=== PATIENT | male | born 1965 | race Caucasian/White ===

== ENCOUNTER → 2017-02-28 | Outpatient (CLI) | payer BC ==
--- NOTE | 2017-02-28 12:11 | RAD ---
Thoracic spine plain films Indication: Cervical and thoracic pain for 2 months, felt a pop while working, left arm numbness Comparison: None Findings: Thoracic spine is in normal anatomic alignment. No compression deformities. Mild multilevel degenerative disc disease. Visualized lungs are clear. Heart is normal in size. Impression: Mild degenerative disc disease in the spine. No compression deformities. If concern for thoracic spine fracture is high, please consider CT of the thoracic spine without IV contrast. MTDD
--- NOTE | 2017-02-28 12:11 | RAD ---
Cervical spine plain films Indication: Cervical and thoracic pain for 2 months, felt a pop while working, left arm numbness. Technique: 3 views of the cervical spine Comparison: None Findings: There is loss of normal cervical lordosis. This could be due to muscle spasm or technique. No vertebral body height loss. Intervertebral disc space narrowing noted at C4-C5 with anterior osteophytes compatible with degenerative disc disease. Facet joints are well aligned. No atlantoaxial joint widening. Prevertebral soft tissues are within normal limits. Visualized lung apices are clear. Impression: Cervical spine straightening may be secondary to muscle spasm or technique. Degenerative disc disease at C4-C5. MTDD
== END | disposition home or self-care (01) ==
LOC: DXRADRC 09:08
PROVIDERS: ATTEND Nurse Practitioner Family
DX: M50.321 Other cervical disc degeneration at C4-C5 level (principal); M51.34 Other intervertebral disc degeneration, thoracic region; M40.292 Other kyphosis, cervical region
CPT/HCPCS: 72040; 72072

== ENCOUNTER → 2017-03-07 | Outpatient (CLI) | payer BC ==
--- NOTE | 2017-03-07 16:51 | RAD ---
AP and lateral lumbar spine radiographs 03/07/2017 Clinical history: Low back pain for 6 months. AP and 2 lateral digital radiographs of lumbar spine were obtained. Minimal S shaped curvature of the thoracic lumbar spine is seen. Degenerative changes are seen involving the lower thoracic and throughout the lumbar disc spaces consisting of vertebral endplate sclerosis and minimal to mild anterior vertebral body osteophyte formation. Mild disc space narrowing is seen at L4-5 and L5-S1. Degenerative changes are seen involving the facet joints of the mid and lower lumbar spine. No fracture or subluxation is seen. Impression: Degenerative changes are seen as outlined above. No acute osseous abnormality is seen.
== END | disposition home or self-care (01) ==
LOC: DXRADRC 11:05
PROVIDERS: ATTEND Nurse Practitioner Family
DX: M47.896 Other spondylosis, lumbar region (principal); M47.894 Other spondylosis, thoracic region; M43.8X5 Other specified deforming dorsopathies, thoracolumbar region
CPT/HCPCS: 72100

== ENCOUNTER → 2017-11-15 | Outpatient (CLI) | payer BC ==
--- NOTE | 2017-11-15 08:29 | RAD ---
CT of the paranasal sinuses without contrast, 11/15/2017: HISTORY: Chronic sinusitis Noncontrast scans were obtained with multiplanar reconstructions produced. There is only minimal mucosal thickening involving the ostiomeatal complexes bilaterally. The ethmoid infundibulum is patent on both sides. No free fluid is evident in the paranasal sinuses. The orbital contents are unremarkable. There is nasal bone deformity compatible with an old depressed fracture. The bony structures are otherwise unremarkable. IMPRESSION: 1. Minimal mucosal thickening involving the ostiomeatal complexes bilaterally. 2. No evidence of acute paranasal sinusitis. Electronically signed by: Reddy Rushing MD (11/15/2017 8:27 AM) [facility]
== END | disposition home or self-care (01) ==
LOC: CT 08:03
PROVIDERS: ATTEND Nurse Practitioner Family
DX: J32.9 Chronic sinusitis, unspecified (principal)
CPT/HCPCS: 70486

== ENCOUNTER → 2018-06-05 | Outpatient (CLI) | payer BC ==
--- NOTE | 2018-06-05 15:50 | RAD ---
EXAM: AP, bilateral lumbosacral spot views with lateral flexion/extension views of the lumbar spine DATE: 06/05/2018 11:11 AM INDICATION: back pain with flex/ext COMPARISON: MRI lumbar spine 05/30/2018, radiographs 10/31/2017 FINDINGS: In keeping with prior numbering scheme of the lumbar spine there are 5 nonrib-bearing lumbar-type vertebral bodies. Tiny ribs are seen at the T12 level. Vertebral body heights are preserved. No evidence of acute fracture. There is approximately 6 mm anterolisthesis of L4 on L5 on the extension image and 7 mm anterolisthesis of L4 on L5 on the flexion image. Mild L4-5 and L5-S1 facet degenerative change. Mild L4-5 and L5-S1 intervertebral disc height loss. No evidence of acute fracture. Vertebral body heights are preserved. IMPRESSION: Anterolisthesis of L4 on L5 without dynamic instability. Degenerative changes of the lumbar spine most prominent at L4-5 and L5-S1. Electronically signed by: Forrest Chaudhary MD (06/05/2018 3:46 PM) [id number]
== END | disposition home or self-care (01) ==
LOC: RAD 10:57
PROVIDERS: ATTEND Neurological Surgery
DX: M43.16 Spondylolisthesis, lumbar region (principal); M48.061 Spinal stenosis, lumbar region without neurogenic claudication; M47.896 Other spondylosis, lumbar region
CPT/HCPCS: 72110

== ENCOUNTER → 2018-06-14 | Outpatient (CLI) | payer BC ==
--- NOTE | 2018-06-14 09:49 | EKG ---
[address] [address] Test Date: 2018-06-14 Test Time: 09:16:57 Pat Name: EDDI WHITFIELD Department: Room: Gender: M [employer]: : 1965 Requested By: GEOVANY MUNIZ Order Number: [id number] Reading MD: Measurements Intervals [place] Rate: 72 P: 41 HI: 154 QRS: 27 QRSD: 80 T: 27 QT: 366 QTc: 402 Interpretive Statements SINUS RHYTHM OTHERWISE NORMAL ECG RI6.01 Unconfirmed report No previous ECG available for comparison
[2018-06-14 10:06] LABS: BASO % 1 % (0-3); EOS % 1 % (0-3); HEMATOCRIT 39.9 % (39.0-53.0); HEMOGLOBIN 13.7 g/dL (13.0-17.5); LYMPH # 1.2 x10^3/uL (1.0-4.8); LYMPH % 28 % (24-48); MEAN CORPUSCULAR HEMOGLOBIN 33 pg (25-35); MEAN CORPUSCULAR HGB CONC 34 g/dL (31-37); MEAN CORPUSCULAR VOLUME 96 fL (79-100); MONO # 0.5 x10^3/uL (0.0-1.1); MONO % 11 % (0-9); NEUT # 2.5 x10^3uL (1.8-7.7); NEUT % 59 % (31-73); PLATELET COUNT 276 x10^3/uL (140-400); RED BLOOD COUNT 4.18 x10^6/uL (4.30-5.70); RED CELL DISTRIBUTION WIDTH 12.4 % (11.5-14.5); WHITE BLOOD COUNT 4.3 x10^3/uL (4.0-11.0)
[2018-06-14 10:13] LABS: ALBUMIN 4.3 g/dL (3.4-5.0); ALBUMIN/GLOBULIN RATIO 1.5 (1.0-1.7); CALCIUM 8.7 mg/dL (8.5-10.1); CREATININE 0.9 mg/dL (0.7-1.3); GFR 88.6; POTASSIUM 4.4 mmol/L (3.5-5.1); TOTAL BILIRUBIN 0.7 mg/dL (0.2-1.0); TOTAL PROTEIN 7.2 g/dL (6.4-8.2)
== END | disposition home or self-care (01) ==
LOC: LAB 09:02
PROVIDERS: ATTEND Neurological Surgery
DX: Z01.818 Encounter for other preprocedural examination (principal); M48.062 Spinal stenosis, lumbar region with neurogenic claudication; M71.38 Other bursal cyst, other site; M54.16 Radiculopathy, lumbar region
CPT/HCPCS: 36415; 80053; 85025; 87641; 93005

== ENCOUNTER 2021-07-27 11:18 | Emergency (ER) | payer BC, OTHER ==
[~2021-07-27] VITALS: Ht 172.7 cm; Wt 86.0 kg
[2021-07-27 12:18] VITALS: BP 134/104
--- NOTE | 2021-07-27 12:19 | PHYS DOC ---
Adult General HPI HPI Patient is a 56-year-old male presenting with significant other for chest wall pain. Reports this is a chronic issue. States it has been going on for years. Denies any recent mechanism of injury or exacerbation or known trauma but presents for left-sided chest wall pain. States he was evaluated in the distant past by his primary care physician with unremarkable labs and radiographs. Reports he has not been seen for this in several years. Nonetheless, he reports today it was aggravating him more than usual prompting him to come in for evaluation. Reports pain is focal sharp and associated along left lateral rib cage directly over " one of my bottom ribs". Denies any known medical issues, just admits ongoing chewing tobacco and alcohol dependence Review of Systems Review of Systems Fourteen body systems of review of systems have been reviewed. See HPI for pertinent positives and negative responses, other quiroz all other systems are negative, non-pertinent or non-contributory Physical Exam Physical Exam Constitutional: Well developed, well nourished, no acute distress, non-toxic appearance. HENT: Normocephalic, atraumatic, bilateral external ears normal, oropharynx moist, no oral exudates, nose normal. Eyes: PERRLA, EOMI, conjunctiva normal, no discharge. Neck: Normal range of motion, no tenderness, supple, no stridor. Cardiovascular: Heart rate regular, sinus rhythm, no murmurs rubs or gallops. Tender left chest wall most noticeable along left 10th rib laterally without any palpable and/or visual abnormalities Lungs & Thorax: Bilateral breath sounds clear to auscultation Abdomen: Bowel sounds normal, soft, no tenderness, no masses, no pulsatile masses. Nonsurgical abdomen, no peritoneal signs Skin: Warm, dry, no erythema, no rash. Back: No tenderness, no CVA tenderness. Extremities: No tenderness, no cyanosis, no clubbing, ROM intact, no edema. Neurologic: Alert and oriented X 3, grossly normal motor & sensory function, no focal deficits noted. Psychologic: Anxious affect and mood Current Patient Data Vital Signs Vital Signs Date Time Temp Pulse Resp B/P (MAP) Pulse Ox O2 Delivery O2 Flow Rate FiO2 07/27/21 12:18 98.4 89 18 134/104 (114) 100 Room Air Vital Signs Date Time Temp Pulse Resp B/P (MAP) Pulse Ox O2 Delivery O2 Flow Rate FiO2 07/27/21 12:18 98.4 89 18 134/104 (114) 100 Room Air EKG EKG EKG ordered and interpreted by myself at 1133 hrs. is sinus rhythm at 95 bpm, unremarkable intervals, right axis deviation, no acute ischemic findings, no STEMI Radiology/Procedures Radiology/Procedures XR RIBS MIN 3 VIEWS LT W/PA CHEST History: Reason: left posterior rib cage pain / Spl. Instructions: / History: Technique: PA view of the chest and additional views of the left ribs. Comparison: None. Findings: No consolidation or pleural effusion. No pneumothorax. Normal heart size. Postop changes cervical spine. No displaced rib fractures. Impression: 1. No acute cardiopulmonary process. No displaced rib fractures. Electronically signed by: Héctor Chao DO (07/27/2021 1:13 PM) [id number] Heart Score C/O Chest Pain: Yes HEART Score for Chest Pain: HEART Score for Chest Pain Response (Comments) Value History Slighlty/Non-Suspicious 0 ECG Normal 0 Age >45 - < 65 1 Risk Factors No Risk Factors 0 Total 1 Risk Factors: Risk Factors: DM, Current or recent (<one month) smoker, HTN, HLP, family history of CAD, obesity. Risk Scores: Risk Factors: DM, Current or recent (<one month) smoker, HTN, HLP, family history of CAD, obesity. Course & Med Decision Making Course & Med Decision Making ABCs unremarkable HPI physical exam and radiograph of chest nonconcerning for any emergent or surgical issues. Patient here for chronic problem, little indication for further diagnostic work-up and/or need for hospitalization at present Patient has good access to PCP, advised close outpatient follow-up for further work-up with return precautions discussed with good understanding by patient and significant other Dragon Disclaimer Dragon Disclaimer This electronic medical record was generated, in whole or in part, using a voice recognition dictation system. Departure Departure: Impression: Primary Impression: Left-sided chest wall pain Disposition: HOME / SELF CARE / HOMELESS Condition: STABLE Referrals: SADIA NAVARRO MD (PCP) Additional Instructions: You were seen for lateral wall chest pain. Your workup did not show any acute abnormalities today, but does not indicate that you do not have underlying cardiovascular disease. You do need to follow up with your primary doctor and potentially a batch maker for further evaluation and treatment. As discussed, you should discuss utility of further outpatient cardiac stress test with your physician. You should continue using Tylenol and heating pad applied to your left lateral chest wall for your likely costochondritis pain. You should return to the ED if you develop worsening chest pain, shortness of breath, fever, abnormal sweating, leg swelling, or any other new or concerning symptoms. MARIA ISABEL MAY DO Jul 27, 2021 12:19
[2021-07-27] MEDS ORDERED: KETOROLAC 60 MG/2 ML VIAL. IM ONE (12:30)
[2021-07-27] MEDS ORDERED: OMEP10CA PO (12:33)
--- NOTE | 2021-07-27 13:15 | RAD ---
XR RIBS MIN 3 VIEWS LT W/PA CHEST History: Reason: left posterior rib cage pain / Spl. Instructions: / History: Technique: PA view of the chest and additional views of the left ribs. Comparison: None. Findings: No consolidation or pleural effusion. No pneumothorax. Normal heart size. Postop changes cervical spi ne. No displaced rib fractures. Impression: 1. No acute cardiopulmonary process. No displaced rib fractures. Electronically signed by: Héctor Chao DO (07/27/2021 1:13 PM) [id number]
--- NOTE | 2021-07-27 14:35 | EKG ---
[address] [address] Test Date: 2021-07-27 Test Time: 11:28:52 Pat Name: EDDI WHITFIELD Department: Room: [facility]: [facility]: Jc : 1965 Requested By: MARIA ISABEL MAY Order Number: [id number] Reading MD: Darius Mishra MD Measurements Intervals [place] Rate: 95 P: 164 MD: 132 QRS: 186 QRSD: 78 T: 172 QT: 346 QTc: 438 Interpretive Statements SR LIMB LEAD MISPLACEMENT Electronically Signed On 07-28-2021 20:49:25 PAPER BUNDLER by Darius Mishra MD
== END 2021-07-27 13:49 | disposition home or self-care (01) ==
LOC: ER 11:18
DX: R07.89 Other chest pain (principal)
CPT/HCPCS: 71101; 93005; 96372; 99283; J1885